=== PATIENT | male | born 1990 | race Two or more races ===

== ENCOUNTER 2020-11-24 22:39 | Emergency (ER) | payer OTHER ==
[~2020-11-24] VITALS: Ht 167.6 cm; Wt 68.0 kg
[2020-11-25] MEDS ORDERED: KETOROLAC TROMETH 60MG/2ML VIAL IM ONE (02:30)
[2020-11-25 03:13] VITALS: BP 132/78
== END 2020-11-25 04:47 | disposition home or self-care (01) ==
LOC: ER 22:41
DX: S16.1XXA Strain of muscle, fascia and tendon at neck level, initial encounter (principal); S80.12XA Contusion of left lower leg, initial encounter; G93.0 Cerebral cysts; V43.52XA Car driver injured in collision with other type car in traffic accident, initial encounter; Y93.89 Activity, other specified; Y92.410 Unspecified street and highway as the place of occurrence of the external cause; Y99.8 Other external cause status
CPT/HCPCS: 70450; 71250; 72125; 73552; 96372; 99285; J1885